=== PATIENT | female | born 1960 | race Caucasian/White ===

== ENCOUNTER 2020-08-02 09:49 | Emergency (ER) | payer BC, OTHER ==
[~2020-08-02] VITALS: Ht 167.6 cm; Wt 77.1 kg
[~2020-08-02 09:49] MED LIST: ACYCLOVIR 400400 MG PO; AMBIEN 5 MG TABL5 M1 PO; AUGMENTIN 875-1 EACH PO; BIOTIN1 MG PO; HYDROXYZINE HCL25 M1 PO; IBUPROFEN 200200 M1 PO; LIQUID MULTIVITAMIN PO; LORTAB 10 MG-3473 ML PO; MILK OF MA2400 MG/10 PO; MULTIVITAMINS1 EAC7 PO; PERCOCET 5-3251 EACH PO; PROGESTERONE100 MG PO; SENNA8.6 MG PO; TRAZODONE HCL100 MG PO; UNICOMPLEX M TA1 TA1 PO; WELLBUTRIN SR150 MG PO; ZOFRAN ODT4 MG DISSOLVE
[2020-08-02 12:39] VITALS: BP 119/77
== END 2020-08-02 12:39 | disposition home or self-care (01) ==
LOC: ER 09:49
DX: S01.81XA Laceration without foreign body of other part of head, initial encounter (principal); Z90.49 Acquired absence of other specified parts of digestive tract; Z79.899 Other long term (current) drug therapy; Z88.5 Allergy status to narcotic agent; W22.8XXA Striking against or struck by other objects, initial encounter; Y93.89 Activity, other specified; Y92.89 Other specified places as the place of occurrence of the external cause; Y99.8 Other external cause status